=== PATIENT | male | born 1965 | race Caucasian/White ===

== ENCOUNTER → 2017-01-05 | Outpatient (REF) | LOC: ZLAB.WCH 11:04 | DX: Z01.89 Encounter for other specified special examinations (principal) | CPT/HCPCS: G0103 ==

== ENCOUNTER → 2018-02-04 | Outpatient (REF) | LOC: ZLAB.WCH 14:31 | DX: Z01.89 Encounter for other specified special examinations (principal) | CPT/HCPCS: G0103 ==

== ENCOUNTER → 2019-01-05 | Outpatient (REF) | LOC: ZLAB.WCH 09:15 | DX: Z01.89 Encounter for other specified special examinations (principal) ==

== ENCOUNTER → 2019-01-14 | Outpatient (REF) ==
[2019-01-14 10:13] LABS: THYROID STIMULATING HORMONE 2.75 uIU/mL (0.465-4.680)
== END ==
LOC: ZLAB.WCH 09:20
PROVIDERS: Nurse Practitioner
DX: Z01.89 Encounter for other specified special examinations (principal)

== ENCOUNTER → 2019-05-03 | Outpatient (CLI) | payer BC | LOC: DIA.ED 04-21 15:35 | DX: E11.9 Type 2 diabetes mellitus without complications (principal); E78.5 Hyperlipidemia, unspecified; I10 Essential (primary) hypertension; E66.9 Obesity, unspecified | CPT/HCPCS: G0108 ==

== ENCOUNTER 2021-06-11 20:40 | Inpatient (IN) | payer SELFPAY ==
[~2021-06-11] VITALS: Ht 175.3 cm; Wt 102.3 kg
--- NOTE | 2021-06-11 22:29 | NUR ---
arrived via ems, udpated on room, hospital visitation policy, use of call marquez, covid restrictions, patient is alert, oriented x 4, assessment completed at this time
[2021-06-12 00:06] VITALS: BP 140/82; PULSE 88; TEMP 99.9
--- NOTE | 2021-06-12 08:00 | NUR ---
Assessment complete. Pt sitting up on side of bed, A&O x 4, denies pain at this time. O2 provided via NC at 2 L/min. Breath sounds with coarse crackles in bases bilat. Saline lock IV to left forearm without s/s of complications. No further needs reported. Call light in reach.
[2021-06-12 08:04] VITALS: BP 136/79; PULSE 84; TEMP 97.9
[2021-06-12 08:08] LABS: BASO % 0.2 % (0.0-2.0); GRAN # 4.5 (1.4-6.5); GRAN % 77.1 % (42.2-75.2); HEMATOCRIT 41.9 % (42.0-52.0); LYMPH # 0.9 (1.2-3.4); LYMPH % 15.8 % (20.0-51.0); MEAN CELL VOLUME 87 fl (80.0-100.0); MEAN CORPUSCULAR HEMOGLOBIN 29 pg (27.0-31.0); MEAN CORPUSCULAR HGB CONC 33 g/dl (33.0-37.0); MEAN PLATELET VOLUME 10.7 fl (7.4-10.4); MONO # 0.4 (0.1-0.6); PLATELET COUNT 168 K/mm3 (130-400); RED BLOOD COUNT 4.84 M/mm3 (4.20-5.60); REDCELL DISTRIBUTION WIDTH-CV 12.6 % (11.5-14.5)
[2021-06-12 08:18] LABS: ALBUMIN 3.8 gm/dL (3.5-5.0); BILIRUBIN,TOTAL 0.7 mg/dL (0.0-1.0); CALCIUM 8.6 mg/dL (8.4-10.2); CREATININE, serum 0.63 (0.66-1.25); POTASSIUM 4.6 mmol/L (3.4-5.0); TOTAL PROTEIN 7.4 gm/dL (6.4-8.2)
--- NOTE | 2021-06-12 09:09 | NUR ---
The patient is COVID positive. SW contacted the patient's room phone to discuss discharge plan. The patient lives in [place] with his , Gabriela (ph#[phone]). He reports independence with ADLs and does not have any DME. The patient's primary care provider is Alesia Garces PA-C and he receives his medications from [facility]. He reports no difficulties obtaining his meds. The patient does not have a DPOA-HC, but he was interested in obtaining a DPOA-HC form when he returns home. SW placed a form on the patient's chart. The patient plans to return home with his upon discharge. The patient is currently requiring 2 liters of oxygen. SW to continue to monitor. *Discharge plan: home with *
[2021-06-12] MEDS ORDERED: GLUCOPHAGE500 MG/TAB PO (10:46)
[2021-06-12] MEDS ORDERED: ZOCOR 40MG40 MG PO (10:47)
[2021-06-12] MEDS ORDERED: PRINZIDE 12.5 M1 TA1 PO (10:47)
[2021-06-12] MEDS ORDERED: INDOCIN50 MG PO (10:48)
[2021-06-12] MEDS ORDERED: GLUCOSAMINE/CHO1 CA5 PO (10:50)
[2021-06-12 11:45] VITALS: BP 140/85; PULSE 86; TEMP 98.3
[2021-06-12 16:42] VITALS: BP 126/73; PULSE 90; TEMP 97.7
--- NOTE | 2021-06-12 17:30 | NUR ---
Sched medications adminsitered per orders. Pt sitting up in chair, denies needs at this time. Continues on O2 at 2 L/min via NC. Otherwise uneventful shift. Call light in reach.
--- NOTE | 2021-06-12 18:48 | NUR ---
Report with TRAVIS Eugene.
[2021-06-12 19:48] VITALS: BP 135/68; PULSE 88; TEMP 99.7
[2021-06-13 00:26] VITALS: BP 114/59; PULSE 77; TEMP 98.5
[2021-06-13 03:22] VITALS: BP 122/65; PULSE 72; TEMP 97.2
--- NOTE | 2021-06-13 05:14 | NUR ---
Patient tolerating O2@1L per NC with SPO2 of 95%, VS stable, no s/s of hypo/hyper glycemia noted, will continue to monitor.
[2021-06-13 08:17] VITALS: BP 117/66; PULSE 75; TEMP 97.8
[2021-06-13 09:00] LABS: HEMATOCRIT 41.6 % (42.0-52.0); HEMOGLOBIN 13.9 g/dl (13.5-18.0); MEAN CELL VOLUME 87 fl (80.0-100.0); MEAN CORPUSCULAR HEMOGLOBIN 29 pg (27.0-31.0); MEAN CORPUSCULAR HGB CONC 33 g/dl (33.0-37.0); MEAN PLATELET VOLUME 11.3 fl (7.4-10.4); PLATELET COUNT 218 K/mm3 (130-400); RED BLOOD COUNT 4.81 M/mm3 (4.20-5.60); REDCELL DISTRIBUTION WIDTH-CV 12.5 % (11.5-14.5)
[2021-06-13 09:06] LABS: C-REACTIVE PROTEIN 4.1 mg/dL (0.0-0.9); CALCIUM 8.8 mg/dL (8.4-10.2); CREATININE, serum 0.49 (0.66-1.25); POTASSIUM 4.1 mmol/L (3.4-5.0)
[2021-06-13 09:40] LABS: BAND 2 % (0-10); LYMPHOCYTE 32 % (20.0-51.0); NEUTROPHILS 63 % (42.0-75.2); PLATELET ESTIMATE NORMAL (NORMAL)
--- NOTE | 2021-06-13 09:57 | NUR ---
SCHEDULED MEDICATIONS GIVEN. SHIFT ASSESSMENT PREFORMED. PATIENT CURRENTLY REQUIRING 1 L OF O2 VIA NASAL CANNULA. PATIENT DENIES ANY PAIN, DISCOMFORT, SOA, N/V/D. PATIENT IS AFEBRILE. CALL LIGHT IN REACH. VSS.
[2021-06-13 12:28] VITALS: BP 121/77; PULSE 80; TEMP 97.9
[2021-06-13 16:00] VITALS: BP 127/79; PULSE 79; TEMP 97.6
--- NOTE | 2021-06-13 18:30 | NUR ---
REPORT GIVEN TO YARD JACKER. PATIENT CURRENTLY REQURING 1 L OF O2 VIA NASAL CANNULA. PATIENT DENIES ANY PAIN, DISCOMFORT, OR FURTHER NEEDS AT THIS TIME. CALL LIGHT IN REACH. VSS.
[2021-06-13 21:18] VITALS: BP 140/77; PULSE 83; TEMP 98.4
[2021-06-14 00:19] VITALS: BP 126/66; PULSE 70; TEMP 98.1
[2021-06-14 05:08] VITALS: BP 117/62; PULSE 69; TEMP 98
[2021-06-14 08:00] VITALS: BP 129/107; PULSE 85; TEMP 97.7
[2021-06-14 08:14] LABS: HEMATOCRIT 41.4 % (42.0-52.0); HEMOGLOBIN 14.1 g/dl (13.5-18.0); MEAN CELL VOLUME 85 fl (80.0-100.0); MEAN CORPUSCULAR HEMOGLOBIN 29 pg (27.0-31.0); MEAN CORPUSCULAR HGB CONC 34 g/dl (33.0-37.0); MEAN PLATELET VOLUME 10.7 fl (7.4-10.4); PLATELET COUNT 210 K/mm3 (130-400); RED BLOOD COUNT 4.89 M/mm3 (4.20-5.60); REDCELL DISTRIBUTION WIDTH-CV 12.3 % (11.5-14.5)
[2021-06-14 08:25] LABS: ALBUMIN 3.7 gm/dL (3.5-5.0); BILIRUBIN,TOTAL 0.6 mg/dL (0.0-1.0); C-REACTIVE PROTEIN 2.4 mg/dL (0.0-0.9); CALCIUM 8.9 mg/dL (8.4-10.2); CREATININE, serum 0.54 (0.66-1.25); POTASSIUM 4.1 mmol/L (3.4-5.0); TOTAL PROTEIN 7.1 gm/dL (6.4-8.2)
[2021-06-14 08:55] LABS: BAND 2 % (0-10); LYMPHOCYTE 17 % (20.0-51.0); NEUTROPHILS 77 % (42.0-75.2); PLATELET ESTIMATE NORMAL (NORMAL)
--- NOTE | 2021-06-14 11:41 | NUR ---
RT notified SW that an exercise oximetry was ordered and that the patient did not qualify for oxygen. The patient is to discharge back home today, 06/14. No additional needs at this time.
[2021-06-14] MEDS ORDERED: MONODOX100 PO (12:28)
[2021-06-14] MEDS ORDERED: OMNICEF 300MG300 MG PO (12:29)
[2021-06-14] MEDS ORDERED: PROVENTIL0.09 MG/A1 IH (12:30)
[2021-06-14] MEDS ORDERED: LEVEMIR100 U/ML SQ (12:33)
[2021-06-14] MEDS ORDERED: INSULIN SYRING1 EA11 SQ (12:34)
[2021-06-14] MEDS ORDERED: BD ALCOHOL1 SWA TOP (12:35)
[2021-06-14 12:58] VITALS: BP 127/79; BP 1277/79; PULSE 68; TEMP 98.5
--- NOTE | 2021-06-14 15:08 | NUR ---
SCHEDULED MEDICATIONS GIVEN. SHIFT ASSESSMENT PREFORMED. VSS. EDUCATION ON INSULIN ADMINISTRATION GIVEN. PATIENT PREFORMED CORRECTLY. DISCHARGE EDUCATION/INSTRUCTIONS GIVEN. ALL QUESTIONS ANSWERED. IV DC'D, CATHETER INTACT, NO SIGNS OF PHLEBITIS. PATIENT DENIES ANY FURTHER QUESTIONS, CONCERNS, PAIN, DISCOMFORT, OR NEEDS AT THIS TIME. PATIENT AMBULATED FROM [facility]ILD[facility] SON TRANSPORTING PATIENT HOME.
== END 2021-06-14 15:11 | disposition home or self-care (01) | DRG 177 ==
LOC: MEDICAL 20:40
PROVIDERS: Student in an Organized Health Care Education/Training Program; ADMIT Internal Medicine
PROC: XW033E5 Introduction of Remdesivir Anti-infective into Peripheral Vein, Percutaneous Approach, New Technology Group 5 (ICD-10-PCS; principal; 2021-06-11)
DX: U07.1 COVID-19 (principal); J96.01 Acute respiratory failure with hypoxia; J12.82 Pneumonia due to coronavirus disease 2019; N17.9 Acute kidney failure, unspecified; E11.65 Type 2 diabetes mellitus with hyperglycemia; E66.9 Obesity, unspecified; M17.0 Bilateral primary osteoarthritis of knee; M10.9 Gout, unspecified; I10 Essential (primary) hypertension; Z68.33 Body mass index [BMI] 33.0-33.9, adult
CPT/HCPCS: 99223-AI; 99232-AI; 99239; A9284; J0696; J1100; J1644; J1815; J7050; J8540